=== PATIENT | male | born 1975 | race Caucasian/White ===

== ENCOUNTER 2023-09-04 19:19 | Emergency (ER) | payer BC ==
[~2023-09-04] VITALS: Ht 172.7 cm; Wt 81.6 kg
[2023-09-04 19:55] VITALS: BP 145/95; PULSE 84; RESP 18; TEMP 98.3; O2SAT 100
[2023-09-04 20:09] VITALS: BP 145/95; PULSE 84; RESP 18; TEMP 98.3; O2SAT 100
[2023-09-04 20:39] LABS: APPEARANCE,URINE CLEAR (CLEAR); BILIRUBIN,URINE NEGATIVE (NEGATIVE); BLOOD, URINE 2+ (NEGATIVE); COLOR,URINE YELLOW (YELLOW); LEUKOCYTE ESTERASE ,URINE NEGATIVE (NEGATIVE); NITRITE, URINE NEGATIVE (NEGATIVE); PROTEIN,URINE NEGATIVE (NEGATIVE); UGLUCOSE NEGATIVE (NEGATIVE); UROBILINOGEN,URINE 0.2 EU/dL (0.2 - 1)
[2023-09-04 20:49] LABS: BACTERIA,URINE None Seen /HPF (None Seen); MUCUS,URINE None Seen /LPF (None Seen); RBC,URINE 11-20 (MOD) /HPF (0-5); SQUAMOUS EPITHELIAL CELL,UR 4-10 (MOD) /LPF (0-3 (FEW)); TRICHOMONAS,URINE None Seen /HPF (None Seen); WBC,URINE 0-5 /HPF (0-5); YEAST,URINE None Seen /HPF (None Seen)
[2023-09-04] MEDS ORDERED: IBUP-2213 PO (21:19)
[2023-09-04] MEDS: IBUPROFEN 800 MG TAB PO ONE (21:41)
== END 2023-09-04 21:50 | disposition home or self-care (01) ==
LOC: MED 19:19
DX: N45.1 Epididymitis (principal); Z79.899 Other long term (current) drug therapy
CPT/HCPCS: 76870; 81001; 99284; Q0092